=== PATIENT | male | born 1975 | race Caucasian/White ===

== ENCOUNTER 2017-03-06 19:28 | Emergency (ER) | payer OTHER ==
[2017-03-06 19:48] VITALS: RESP 18
[2017-03-06] MEDS ORDERED: ONDANSETRON 4 MG/2 ML VIAL IVP STA (19:57)
--- NOTE | 2017-03-06 20:01 | ED ---
General Adult HPI - General Chief complaint: Nausea/Vomiting/Diarrhea Stated complaint: NVD Time Seen by Provider: 03/06/17 19:38 Source: patient Mode of arrival: ambulatory Limitations: no limitations - History of Present Illness Initial comments: 41-year-old male onset of nausea vomiting for one day has had a sore throat, left earache. Also has multiple skin abscesses has had these in the past. He states history for sepsis 6 months ago. He has a mild headache no urinary symptoms mild cough. - Related Data Home Medications Medication Instructions Recorded Confirmed Acetaminophen-Codeine 300-30mg 1 tab PO Q4-6H PRN 03/06/17 03/06/17 [Tylenol #3] Ibuprofen [Motrin] 800 mg PO Q8H PRN 03/06/17 03/06/17 Penicillin V Potassium [Pen Vee K] 500 mg PO TID 03/06/17 03/06/17 Previous Rx's Medication Instructions Recorded Mupirocin 2% Oint [Bactroban 2% 1 applic TOPICAL BID #22 gm 03/06/17 Oint] Ondansetron [Zofran] 4 mg PO Q8HR PRN #6 tab 03/06/17 Sulfamethox-Tmp 800-160Mg [Bactrim 1 each PO Q12HR #20 tab 03/06/17 DS 800-160 mg] Allergies Allergy/AdvReac Type Severity Reaction Status Date / Time metoclopramide [From Reglan] Allergy Confusion Verified 03/06/17 20:11 pineapple Allergy Anaphylaxis Verified 03/06/17 20:11 tomato Allergy Anaphylaxis Verified 03/06/17 20:11 Review of Systems ROS Statement: Those systems with pertinent positive or pertinent negative responses have been documented in the HPI. ROS Other: All systems not noted in ROS Statement are negative. Constitutional: Denies: fever Eyes: Denies: eye pain ENT: Reports: ear pain, throat pain, dental pain Respiratory: Reports: cough Cardiovascular: Denies: chest pain, palpitations Endocrine: Reports: fatigue Gastrointestinal: Reports: nausea, vomiting. Denies: abdominal pain, diarrhea, constipation Genitourinary: Reports: urgency, dysuria Musculoskeletal: Reports: back pain Skin: Reports: rash, other (Small carbuncle on the neck under the arm and in the groin) Neurological: Denies: headache Psychiatric: Denies: anxiety, depression Hematological/Lymphatic: Denies: easy bleeding, easy bruising Past Medical History Past Medical History: Renal Disease, Seizure Disorder History of Any Multi-Drug Resistant Organisms: None Reported Past Surgical History: Appendectomy, Cholecystectomy Additional Past Surgical History / Comment(s): ledt shoulder Past Psychological History: No Psychological Hx Reported, Depression Smoking Status: Current every day smoker Past Alcohol Use History: None Reported Past Drug Use History: None Reported General Exam Limitations: no limitations Head exam: Present: atraumatic Eye exam: Present: PERRL, EOMI ENT exam: Present: mucous membranes moist, other (Throat red left tympanic membrane loss of light reflex) Neck exam: Present: normal inspection Respiratory exam: Present: normal lung sounds bilaterally Cardiovascular Exam: Present: regular rate, normal heart sounds GI/Abdominal exam: Present: soft, normal bowel sounds Neurological exam: Present: alert, CN II-XII intact Psychiatric exam: Present: normal affect, normal mood Skin exam: Present: warm, dry, other (Multiple areas that are carbuncles no fluctuant areas under the arms the posterior right neck and groin) Course Vital Signs 03/06/17 19:36 Temperature 97.3 F L Pulse Rate 105 H Respiratory 18 Rate Blood Pressure 172/98 O2 Sat by Pulse 95 Oximetry Medical Decision Making - Medical Decision Making Chest x-ray is normal, lab work is satisfactory. Have pharyngitis with left otitis media and carbuncles on the skinlikely related to MRSA we'll give one dose of Rocephin followed by Bactrim his strep screen was negative. - Lab Data Result diagrams: 03/06/17 20:20 03/06/17 20:20 Lab Results 03/06/17 03/06/17 03/06/17 Range/Units 20:20 20:20 20:20 WBC 11.8 H (3.8-10.6) k/uL RBC 4.94 (4.30-5.90) m/uL Hgb 15.9 (13.0-17.5) gm/dL Hct 44.7 (39.0-53.0) % MCV 90.5 (80.0-100.0) fL MCH 32.1 (25.0-35.0) pg MCHC 35.5 (31.0-37.0) g/dL RDW 12.5 (11.5-15.5) % Plt Count 339 (150-450) k/uL Neutrophils % 61 % Lymphocytes % 32 % Monocytes % 5 % Eosinophils % 1 % Basophils % 0 % Neutrophils # 7.1 (1.3-7.7) k/uL Lymphocytes # 3.8 (1.0-4.8) k/uL Monocytes # 0.6 (0-1.0) k/uL Eosinophils # 0.1 (0-0.7) k/uL Basophils # 0.0 (0-0.2) k/uL Sodium 138 (137-145) mmol/L Potassium 4.2 (3.5-5.1) mmol/L Chloride 105 (98-107) mmol/L Carbon Dioxide 21 L (22-30) mmol/L Anion Gap 12 mmol/L BUN 11 (9-20) mg/dL Creatinine 0.90 (0.66-1.25) mg/dL Est GFR (MDRD) Af Amer >60 (>60 ml/min/1.73 sqM) Est GFR (MDRD) Non-Af >60 (>60 ml/min/1.73 sqM) Glucose 182 H (74-99) mg/dL Plasma Lactic Acid Vic (0.7-2.0) mmol/L Calcium 9.4 (8.4-10.2) mg/dL Total Bilirubin 0.7 (0.2-1.3) mg/dL AST 31 (17-59) U/L ALT 40 (21-72) U/L Alkaline Phosphatase 74 (38-126) U/L Total Protein 8.0 (6.3-8.2) g/dL Albumin 4.3 (3.5-5.0) g/dL Group A Strep Rapid Negative (Negative) 03/06/17 Range/Units 20:20 WBC (3.8-10.6) k/uL RBC (4.30-5.90) m/uL Hgb (13.0-17.5) gm/dL Hct (39.0-53.0) % MCV (80.0-100.0) fL MCH (25.0-35.0) pg MCHC (31.0-37.0) g/dL RDW (11.5-15.5) % Plt Count (150-450) k/uL Neutrophils % % Lymphocytes % % Monocytes % % Eosinophils % % Basophils % % Neutrophils # (1.3-7.7) k/uL Lymphocytes # (1.0-4.8) k/uL Monocytes # (0-1.0) k/uL Eosinophils # (0-0.7) k/uL Basophils # (0-0.2) k/uL Sodium (137-145) mmol/L Potassium (3.5-5.1) mmol/L Chloride (98-107) mmol/L Carbon Dioxide (22-30) mmol/L Anion Gap mmol/L BUN (9-20) mg/dL Creatinine (0.66-1.25) mg/dL Est GFR (MDRD) Af Amer (>60 ml/min/1.73 sqM) Est GFR (MDRD) Non-Af (>60 ml/min/1.73 sqM) Glucose (74-99) mg/dL Plasma Lactic Acid Vic 1.4 (0.7-2.0) mmol/L Calcium (8.4-10.2) mg/dL Total Bilirubin (0.2-1.3) mg/dL AST (17-59) U/L ALT (21-72) U/L Alkaline Phosphatase (38-126) U/L Total Protein (6.3-8.2) g/dL Albumin (3.5-5.0) g/dL Group A Strep Rapid (Negative) - Radiology Data Radiology results: report reviewed Normal Disposition Clinical Impression: Pharyngitis, Otitis media, Carbuncles Disposition: HOME SELF-CARE Condition: Good Prescriptions: Mupirocin 2% Oint [Bactroban 2% Oint] 1 applic TOPICAL BID #22 gm Ondansetron [Zofran] 4 mg PO Q8HR PRN #6 tab PRN Reason: Nausea Sulfamethox-Tmp 800-160Mg [Bactrim DS 800-160 mg] 1 each PO Q12HR #20 tab Referrals: None,Stated [Primary Care Provider] - 1-2 days Time of Disposition: 21:40
[2017-03-06] MEDS ORDERED: SODIUM CHLORIDE 0.9% 1,000 ML IV STA (20:02)
[2017-03-06 20:42] LABS: Basophils % (A) 0 %; CH 32.2; CHCM 35.7; Eosinophils # (A) 0.1 k/uL (0-0.7); Eosinophils % (A) 1 %; HCT 44.7 % (39.0-53.0); HDW 2.73; HGB 15.9 gm/dL (13.0-17.5); Luc % (Auto) 2; Lymphocytes # (A) 3.8 k/uL (1.0-4.8); Lymphocytes % (A) 32 %; MCH 32.1 pg (25.0-35.0); MCHC 35.5 g/dL (31.0-37.0); MCV 90.5 fL (80.0-100.0); Mean Platelet Volume 6.6; Monocytes # (A) 0.6 k/uL (0-1.0); Monocytes % (A) 5 %; Neutrophils # (A) 7.1 k/uL (1.3-7.7); Neutrophils % (A) 61 %; RBC 4.94 m/uL (4.30-5.90); RDW 12.5 % (11.5-15.5); WBC 11.8 k/uL (3.8-10.6); WBC (Perox) 11.13
--- NOTE | 2017-03-06 20:49 | XR ---
EXAMINATION TYPE: XR chest 2V DATE OF EXAM: 03/06/2017 COMPARISON: 03/11/2013 HISTORY: Diarrhea TECHNIQUE: Frontal and lateral views of the chest are obtained. FINDINGS: Heart and mediastinum are normal. Lungs are clear of consolidation. There is coarsening of interstitial markings. There are no hilar masses. Bony thorax is intact. IMPRESSION: No heart failure or pulmonary consolidation.
[2017-03-06 20:51] LABS: ALT 40 U/L (21-72); AST 31 U/L (17-59); Alkaline Phosphatase 74 U/L (38-126); Anion Gap 12 mmol/L; Blood Urea Nitrogen 11 mg/dL (9-20); Calcium 9.4 mg/dL (8.4-10.2); Carbon Dioxide 21 mmol/L (22-30); Chloride 105 mmol/L (98-107); Glucose 182 mg/dL (74-99); Non-African American GFR(MDRD) >60 (>60 ml/min/1.73 sqM); Potassium 4.2 mmol/L (3.5-5.1); Sodium 138 mmol/L (137-145); Total Bilirubin 0.7 mg/dL (0.2-1.3)
[2017-03-06] MEDS ORDERED: KETOROLAC 30 MG/ML 1 ML VIAL IVP STA (21:05)
--- NOTE | 2017-03-06 21:18 | ED ---
Medical Decision Making - Lab Data Result diagrams: 03/06/17 20:20 03/06/17 20:20 Lab Results 03/06/17 03/06/17 03/06/17 Range/Units 20:20 20:20 20:20 WBC 11.8 H (3.8-10.6) k/uL RBC 4.94 (4.30-5.90) m/uL Hgb 15.9 (13.0-17.5) gm/dL Hct 44.7 (39.0-53.0) % MCV 90.5 (80.0-100.0) fL MCH 32.1 (25.0-35.0) pg MCHC 35.5 (31.0-37.0) g/dL RDW 12.5 (11.5-15.5) % Plt Count 339 (150-450) k/uL Neutrophils % 61 % Lymphocytes % 32 % Monocytes % 5 % Eosinophils % 1 % Basophils % 0 % Neutrophils # 7.1 (1.3-7.7) k/uL Lymphocytes # 3.8 (1.0-4.8) k/uL Monocytes # 0.6 (0-1.0) k/uL Eosinophils # 0.1 (0-0.7) k/uL Basophils # 0.0 (0-0.2) k/uL Sodium 138 (137-145) mmol/L Potassium 4.2 (3.5-5.1) mmol/L Chloride 105 (98-107) mmol/L Carbon Dioxide 21 L (22-30) mmol/L Anion Gap 12 mmol/L BUN 11 (9-20) mg/dL Creatinine 0.90 (0.66-1.25) mg/dL Est GFR (MDRD) Af Amer >60 (>60 ml/min/1.73 sqM) Est GFR (MDRD) Non-Af >60 (>60 ml/min/1.73 sqM) Glucose 182 H (74-99) mg/dL Plasma Lactic Acid Vic (0.7-2.0) mmol/L Calcium 9.4 (8.4-10.2) mg/dL Total Bilirubin 0.7 (0.2-1.3) mg/dL AST 31 (17-59) U/L ALT 40 (21-72) U/L Alkaline Phosphatase 74 (38-126) U/L Total Protein 8.0 (6.3-8.2) g/dL Albumin 4.3 (3.5-5.0) g/dL Group A Strep Rapid Negative (Negative) 03/06/17 Range/Units 20:20 WBC (3.8-10.6) k/uL RBC (4.30-5.90) m/uL Hgb (13.0-17.5) gm/dL Hct (39.0-53.0) % MCV (80.0-100.0) fL MCH (25.0-35.0) pg MCHC (31.0-37.0) g/dL RDW (11.5-15.5) % Plt Count (150-450) k/uL Neutrophils % % Lymphocytes % % Monocytes % % Eosinophils % % Basophils % % Neutrophils # (1.3-7.7) k/uL Lymphocytes # (1.0-4.8) k/uL Monocytes # (0-1.0) k/uL Eosinophils # (0-0.7) k/uL Basophils # (0-0.2) k/uL Sodium (137-145) mmol/L Potassium (3.5-5.1) mmol/L Chloride (98-107) mmol/L Carbon Dioxide (22-30) mmol/L Anion Gap mmol/L BUN (9-20) mg/dL Creatinine (0.66-1.25) mg/dL Est GFR (MDRD) Af Amer (>60 ml/min/1.73 sqM) Est GFR (MDRD) Non-Af (>60 ml/min/1.73 sqM) Glucose (74-99) mg/dL Plasma Lactic Acid Vic 1.4 (0.7-2.0) mmol/L Calcium (8.4-10.2) mg/dL Total Bilirubin (0.2-1.3) mg/dL AST (17-59) U/L ALT (21-72) U/L Alkaline Phosphatase (38-126) U/L Total Protein (6.3-8.2) g/dL Albumin (3.5-5.0) g/dL Group A Strep Rapid (Negative) Disposition Clinical Impression: Pharyngitis, Otitis media, Carbuncles Disposition: HOME SELF-CARE Condition: Good Instructions: Acute Nausea and Vomiting (ED), Otitis Media (ED) Prescriptions: Mupirocin 2% Oint [Bactroban 2% Oint] 1 applic TOPICAL BID #22 gm Ondansetron [Zofran] 4 mg PO Q8HR PRN #6 tab PRN Reason: Nausea Sulfamethox-Tmp 800-160Mg [Bactrim DS 800-160 mg] 1 each PO Q12HR #20 tab Referrals: None,Stated [Primary Care Provider] - 1-2 days
[2017-03-06 21:30] VITALS: BP 156/94; PULSE 98; TEMP 97.9
== END 2017-03-06 22:03 | disposition home or self-care (01) ==
LOC: EC 19:28
DX: L02.13 Carbuncle of neck (principal); L02.234 Carbuncle of groin; L02.434 Carbuncle of left upper limb; L02.433 Carbuncle of right upper limb; H66.92 Otitis media, unspecified, left ear; J02.9 Acute pharyngitis, unspecified; R11.2 Nausea with vomiting, unspecified; R19.7 Diarrhea, unspecified; F17.200 Nicotine dependence, unspecified, uncomplicated; Z91.018 Allergy to other foods; Z88.8 Allergy status to other drugs, medicaments and biological substances
CPT/HCPCS: 36415; 80053; 83605; 85025; 87081; 87430; 71020; 99284; 96365; 96375 ×2; 96361; J2405; J0696; J1885

== ENCOUNTER 2017-05-06 01:00 | Observation (INO) | payer OTHER ==
[2017-05-06] MEDS ORDERED: NITROGLYCERIN SL TABS 0.4 MG TAB SUBLINGUAL STA (01:23)
[2017-05-06] MEDS ORDERED: ASPIRIN 81 MG PO STA (01:23)
[2017-05-06] MEDS ORDERED: SODIUM CHLORIDE 0.9% 1,000 ML IV STA (01:23)
--- NOTE | 2017-05-06 01:34 | ED ---
Chest Pain HPI - General Chief Complaint: Chest Pain Stated Complaint: Chest Pains Time Seen by Provider: 05/06/17 01:06 Source: patient Mode of arrival: wheelchair Limitations: no limitations - History of Present Illness Initial Comments: This patient is a 41-year-old man who presents with complaint of chest pain. He states the pain is in the left upper chest. The pain is a sharp stabbing sensation. He currently rates it severe and states that it is constant. He has not found anything that improves it or makes it worse. He states that when the pain came on he also started having some sweating. Over the course of the last 20 minutes or so he has noted that tingling feeling to his left arm. MD Complaint: chest pain Onset/Timin -: minutes(s) Onset: during rest Pain Location: left chest Pain Radiation: none Severity: severe Quality: sharp Consistency: constant Improves With: nothing Worsens With: nothing Anginal Symptoms: diaphoresis - Related Data Home Medications Medication Instructions Recorded Confirmed Albuterol Inhaler [Ventolin Hfa 1 - 2 puff INHALATION Q6HR PRN 05/06/17 05/06/17 Inhaler] Carvedilol 25 mg PO 05/06/17 HYDROcodone/APAP 5-325MG [[place] 1 tab PO BID 05/06/17 05/06/17 5-325] INSULIN LISPRO (HumaLOG) [HumaLOG] 0 units SQ ACHS 05/06/17 05/06/17 Insulin Glargine [Lantus] 20 unit SQ HS 05/06/17 05/06/17 Lisinopril [Prinivil] 10 mg PO DAILY 05/06/17 05/06/17 Pantoprazole [Protonix] 40 mg PO DAILY 05/06/17 05/06/17 Sucralfate [Carafate] 1 gm PO QID 05/06/17 05/06/17 carBAMazepine [TEGretol XR] 400 mg PO Q12HR 05/06/17 05/06/17 levETIRAcetam 1,000 mg PO Q12HR 05/06/17 05/06/17 Allergies Allergy/AdvReac Type Severity Reaction Status Date / Time metoclopramide [From Reglan] Allergy Confusion Verified 03/06/17 20:11 pineapple Allergy Anaphylaxis Verified 03/06/17 20:11 tomato Allergy Anaphylaxis Verified 03/06/17 20:11 Review of Systems ROS Statement: Those systems with pertinent positive or pertinent negative responses have been documented in the HPI. ROS Other: All systems not noted in ROS Statement are negative. Constitutional: Denies: fever, chills Respiratory: Denies: cough, dyspnea, wheezes Cardiovascular: Reports: chest pain. Denies: palpitations, orthopnea, edema, syncope Gastrointestinal: Denies: abdominal pain, nausea, vomiting Genitourinary: Denies: dysuria Musculoskeletal: Denies: back pain Skin: Denies: rash Neurological: Reports: numbness (Left arm). Denies: headache, weakness EKG Findings - EKG Results: EKG: interpreted by ERMD, sinus rhythm, normal axis, normal QRS, normal ST/T EKG shows: tachycardia (Rate approximately 112 bpm) Past Medical History Past Medical History: Coronary Artery Disease (CAD), Diabetes Mellitus, Renal Disease, Seizure Disorder History of Any Multi-Drug Resistant Organisms: None Reported Past Surgical History: Appendectomy, Cholecystectomy Additional Past Surgical History / Comment(s): ledt shoulder Past Psychological History: No Psychological Hx Reported, Depression Smoking Status: Current every day smoker Past Alcohol Use History: None Reported Past Drug Use History: None Reported - Past Family History Father Family Medical History: Cancer, Chest Pain / Angina, Diabetes Mellitus Mother Family Medical History: Chest Pain / Angina, Coronary Artery Disease (CAD), Diabetes Mellitus General Exam Limitations: no limitations General appearance: alert, obese Head exam: Present: atraumatic, normocephalic Eye exam: Present: normal appearance. Absent: scleral icterus, conjunctival injection ENT exam: Present: normal oropharynx Respiratory exam: Present: normal lung sounds bilaterally. Absent: respiratory distress, wheezes, rales, rhonchi, stridor, chest wall tenderness Cardiovascular Exam: Present: normal rhythm, tachycardia (Rate approximately 108 ), normal heart sounds. Absent: systolic murmur, diastolic murmur, rubs, gallop GI/Abdominal exam: Present: soft. Absent: distended, tenderness, guarding, rebound, mass, pulsatile mass, hernia Extremities exam: Present: normal capillary refill, pedal edema (Patient has trace edema at the ankles bilaterally). Absent: calf tenderness Back exam: Present: normal inspection. Absent: CVA tenderness (R), CVA tenderness (L) Neurological exam: Present: alert Skin exam: Present: warm, intact, normal color, diaphoretic. Absent: rash Course Vital Signs 05/06/17 05/06/17 05/06/17 01:04 02:19 03:58 Temperature 97.5 F L Pulse Rate 112 H 97 93 Pulse Rate [ Pulse Oximetery ] Respiratory 24 18 18 Rate Blood Pressure 164/89 132/68 129/73 Blood Pressure [Left Arm] O2 Sat by Pulse 95 98 99 Oximetry 05/06/17 05/06/17 05/06/17 05:15 05:32 05:43 Temperature 97.9 F 97.9 F 97.7 F Pulse Rate 88 88 Pulse Rate [ 89 Pulse Oximetery ] Respiratory 18 18 18 Rate Blood Pressure 140/72 140/72 Blood Pressure 130/99 [Left Arm] O2 Sat by Pulse 96 96 96 Oximetry Chest Pain MDM - MDM This patient is a 41-year-old man presenting with chest pain and diaphoresis. His initial workup is negative. Case discussed with Dr. Ferrell, who is covering for Dr. Reinoso, and will admit to have telemetry monitoring, serial cardiac enzymes and cardiology consultation. Disposition Clinical Impression: Chest pain Disposition: ADMITTED IP TO THIS HOSP Condition: Fair Referrals: Ellis Reinoso MD [Primary Care Provider] - 1-2 days
[2017-05-06 01:36] LABS: Basophils # (A) 0.1 k/uL (0-0.2); Basophils % (A) 1 %; CH 32.5; Eosinophils # (A) 0.2 k/uL (0-0.7); Eosinophils % (A) 1 %; HCT 48.3 % (39.0-53.0); HDW 2.62; HGB 16.2 gm/dL (13.0-17.5); Luc # (Auto) 0.25; Luc % (Auto) 2; Lymphocytes % (A) 36 %; MCH 31.2 pg (25.0-35.0); MCHC 33.5 g/dL (31.0-37.0); MCV 93.3 fL (80.0-100.0); Mean Platelet Volume 7.6; Monocytes # (A) 0.7 k/uL (0-1.0); Monocytes % (A) 5 %; Neutrophils # (A) 7.7 k/uL (1.3-7.7); Neutrophils % (A) 55 %; RBC 5.18 m/uL (4.30-5.90); RDW 13.4 % (11.5-15.5); WBC (Perox) 13.58
[2017-05-06 01:45] LABS: ALT 78 U/L (21-72); AST 44 U/L (17-59); Alkaline Phosphatase 96 U/L (38-126); Amylase <30 U/L (30-110); Anion Gap 13 mmol/L; Blood Urea Nitrogen 13 mg/dL (9-20); Calcium 10.1 mg/dL (8.4-10.2); Carbon Dioxide 21 mmol/L (22-30); Chloride 105 mmol/L (98-107); Glucose 210 mg/dL (74-99); Magnesium 1.9 mg/dL (1.6-2.3); Non-African American GFR(MDRD) >60 (>60 ml/min/1.73 sqM); Potassium 4.3 mmol/L (3.5-5.1); Sodium 139 mmol/L (137-145); Total Bilirubin 0.5 mg/dL (0.2-1.3); Total Protein 8.3 g/dL (6.3-8.2)
--- NOTE | 2017-05-06 01:52 | XR ---
EXAM: XR Chest, 2 Views CLINICAL HISTORY: Chest Pain TECHNIQUE: Frontal and lateral views of the chest. COMPARISON: 03/06/2017 FINDINGS: Lungs: Unremarkable. No consolidation. Pleural space: Unremarkable. No pneumothorax. Heart: Unremarkable. No cardiomegaly. Mediastinum: Unremarkable. Bones/joints: Unremarkable. IMPRESSION: No acute findings or substantial change
[2017-05-06 02:09] LABS: Appearance,Urine Clear (Clear); Bilirubin,Urine Negative (Negative); Glucose,Urine (UA) 4+ (Negative); Ketones,Urine Negative (Negative); Leukocyte Esterase,Urine Negative (Negative); Nitrite,Urine Negative (Negative); PH, Urine 6.5 (5.0-8.0); Protein,Urine Trace (Negative); Specific Gravity,Urine 1.021 (1.001-1.035); UA Billing (MACRO vs. MICRO) CHEM; Urobilinogen,Urine <2.0 mg/dL (<2.0)
[2017-05-06 02:23] VITALS: RESP 18
[2017-05-06] MEDS ORDERED: MORPHINE SULFATE 4 MG/ML SYRINGE IV STA (04:05)
[2017-05-06] MEDS ORDERED: ENOXAPARIN 150 MG/ML SYRINGE SQ STA (04:05)
[2017-05-06 04:29] LABS: Partial Thromboplastin Time 23.4 sec (22.0-30.0)
[2017-05-06] MEDS ORDERED: NITROGLYCERIN SL TABS 0.4 MG TAB SUBLINGUAL PRN (04:56)
[2017-05-06 06:29] VITALS: BMI 50.2
[2017-05-06 06:59] LABS: Glucose,Whole Blood 135 mg/dL (75-99)
[2017-05-06] MEDS ORDERED: HEPARIN SODIUM,PORCINE 5,000 UNIT/ML 1 ML VIAL SQ SCH (08:00)
[2017-05-06 08:04] LABS: Creatine Kinase 145 U/L (55-170)
[2017-05-06 08:17] LABS: Creatine Kinase MB 0.9 ng/mL (0.0-2.4); Troponin I <0.012 ng/mL (0.000-0.034)
[2017-05-06 08:36] VITALS: BP 175/89; PULSE 83; TEMP 97.5
--- NOTE | 2017-05-06 12:36 | CONS ---
This is a 41-year-old gentleman who is quite obese, has a sleep apnea syndrome. Smokes 2 packs a day and has moved here from [place] sometime in the last year or so. He came into the hospital with complaints of pain, which he describes as a sharp stabbing pain that lasted a few seconds. It comes and goes then he felt that it was constant. After he arrived the pain seemed to have gotten better. His 2 troponins are normal. EKG is unremarkable. He also complained of some nondescript tingling in the left hand fingers which have resolved. He also carries a diagnosis of seizure disorder, type 2 diabetes on insulin and hypertensive cardiovascular disease. At the time of my evaluation, he is resting comfortably without symptoms. PAST MEDICAL HISTORY: 1. Obesity. 2. Obstructive sleep apnea syndrome, wears a CPAP. 3. Type 2 diabetes. 4. Hypertension. 5. History of an abnormal stress test, had a cardiac cath apparently attempted from right radial that was unsuccessful and also right femoral unsuccessful. This was in September and then he was advised medical therapy. This was performed in [place]. Details unavailable. I will try and secure the report. The patient is status post appendectomy and cholecystectomy and left shoulder surgery. SOCIAL HISTORY: Smokes 2 packs a day. Does not use alcohol on a regular basis. CORONARY RISK FACTORS: These include hypertension, obesity, hyperlipidemia, smoking, type 2 diabetes mellitus and does have family history of premature CAD. Medications at home include: Albuterol inhaler, carvedilol, Humalog and Lantus insulin, lisinopril, Protonix, carbamazepine and Keppra. ALLERGIES: He is allergic to REGLAN. On examination, blood pressure 130/80, pulse rate 70 per minute regular. HEENT: Unremarkable. Fundus was not examined by me. Neck is supple. There is no JVD. I do not hear a carotid bruit. Heart exam reveals S1 and S2 with somewhat distant heart sounds. Lungs are clear. Abdomen is distended, nontender. Lower extremities reveal diminished right dorsalis pedis, palpable left dorsalis pedis pulses. EKG revealed sinus mechanism, sinus tach, no acute changes. Laboratory data revealed that 2 sets of troponins are normal. His D-dimer is also within normal limits. IMPRESSION: 1. Chest pain syndrome, seems very atypical. Apparently, there was a question of abnormal stress test and unsuccessful cardiac cath because of spasm from right radial and also right femoral. This is patient information unverified details. 2. Obesity. 3. Type 2 diabetes mellitus. 4. Smoking. 5. Hypertension. RECOMMENDATIONS: I am recommending that I will first obtain the records of his stress test and cardiac cath procedure note from [place]. Based on this, I will make further recommendations. I will not perform an intervention until I get the report. Patient's pain is atypical. Troponins are normal. Will increase activity. I advised the patient to work with smoking cessation and weight reduction efforts. I will secure the information from [place] and then come back and speak to the patient. Thank you very much for the consult. ZIGGY
[2017-05-07] MEDS ORDERED: ASPIRIN 325 MG TAB PO SCH (09:00)
--- NOTE | 2017-05-20 08:35 | HP ---
HISTORY AND PHYSICAL DATE OF ADMISSION: 05/06/2017 CHIEF COMPLAINT: Chest pain. HISTORY OF PRESENT ILLNESS: This is the first known admission for this 41-year-old, obese white male, who smokes heavily. He came into the emergency room with chest pain, cardiac exams are normal. He was admitted for observation. REVIEW OF SYSTEMS: He has had no hemoptysis, chest pain, fever, heart disease, etc. He does have SYLVIA, type 2 diabetes, and hypertension with a history of abnormal stress test. He smokes heavily. PHYSICAL EXAMINATION: Blood pressure is 130/80, pulse 70, respirations 35 and he is afebrile. In general, he appears to be obese, in no apparent distress. Skin color is normal. Skin is warm and dry and lymph nodes are not enlarged. Head, ears, eyes, nose, mouth and throat were normal. Neck veins are not distended. Chest was clear to auscultation and the cardiac exam is normal sinus rhythm. Abdomen is soft and protuberant and extremities were normal. IMPRESSION: 1. Chest pain with normal cardiac enzymes. 2. Obesity. 3. Chronic obstructive pulmonary disease. 4. Diabetes. 5. Obstructive sleep apnea. 6. Hypertension. PLAN: 1. Bed rest. 2. IV fluids. 3. Serial EKGs and enzymes. 4. Consult with Cardiology. MMODL / IJN: [id number] /
== END 2017-05-06 09:02 | disposition left against medical advice (07) ==
LOC: EC 01:00 → 3OBS 04:56
PROVIDERS: ADMIT Family Medicine; ATTEND Family Medicine
DX: R07.89 Other chest pain (principal); R61 Generalized hyperhidrosis; R20.2 Paresthesia of skin; I11.9 Hypertensive heart disease without heart failure; I25.10 Atherosclerotic heart disease of native coronary artery without angina pectoris; G47.33 Obstructive sleep apnea (adult) (pediatric); Z99.89 Dependence on other enabling machines and devices; G40.909 Epilepsy, unspecified, not intractable, without status epilepticus; E11.9 Type 2 diabetes mellitus without complications; J44.9 Chronic obstructive pulmonary disease, unspecified; E78.5 Hyperlipidemia, unspecified; F17.200 Nicotine dependence, unspecified, uncomplicated; E66.9 Obesity, unspecified; Z68.43 Body mass index [BMI] 50.0-59.9, adult; Z79.4 Long term (current) use of insulin; Z79.891 Long term (current) use of opiate analgesic; Z79.899 Other long term (current) drug therapy; Z88.8 Allergy status to other drugs, medicaments and biological substances; Z91.018 Allergy to other foods; Z82.49 Family history of ischemic heart disease and other diseases of the circulatory system
CPT/HCPCS: 99285 ×2; 96374 ×2; 96372 ×2; 36415; 93005; 85379; 80053; 82150; 82550; 82553; 83690; 83735; 84484; 85025; 85610; 85730; 81003; 71020; G0378; J2270; J1650

== ENCOUNTER 2017-05-19 12:49 | Emergency (ER) | payer OTHER ==
[2017-05-19 12:55] VITALS: BP 180/99; PULSE 90; RESP 18; TEMP 97.9
[2017-05-19] MEDS ORDERED: IBUPROFEN 600 MG TAB PO STA (13:03)
--- NOTE | 2017-05-19 13:14 | ED ---
Lower Extremity Injury HPI - General Chief Complaint: Extremity Injury, Lower Stated Complaint: Leg Injury Time Seen by Provider: 05/19/17 12:57 Source: patient Mode of arrival: wheelchair Limitations: no limitations - History of Present Illness Initial Comments: 41-year-old male patient presents to emergency department today for evaluation of left ankle pain. Patient states that around noon he was walking through a parking lot when he stepped into a hole twisting his left ankle. Patient states that he is having a lot of pain on the lateral side of the ankle. Patient states that it hurts to walk. He states that the area is swollen. Patient denies falling, hitting his head, losing consciousness. Denies any numbness or tingling to the foot. Patient denies taking any pain medication for this. Patient states he has had previous injuries to the ankle states it has been broken 12 times. Patient denies any headache, neck pain, back pain, chest pain, shortness of breath, dizziness, weakness, abdominal pain, nausea, vomiting, or difficulties with bowel movements or urination. - Related Data Home Medications Medication Instructions Recorded Confirmed Albuterol Inhaler [Ventolin Hfa 1 - 2 puff INHALATION Q6HR PRN 05/06/17 05/06/17 Inhaler] Carvedilol 25 mg PO BID 05/06/17 05/06/17 HYDROcodone/APAP 5-325MG [[place] 1 tab PO BID 05/06/17 05/06/17 5-325] INSULIN LISPRO (HumaLOG) [HumaLOG] See Protocol SQ ACHS 05/06/17 05/06/17 Insulin Glargine [Lantus] 20 unit SQ HS 05/06/17 05/06/17 Lisinopril [Prinivil] 10 mg PO DAILY 05/06/17 05/06/17 Pantoprazole [Protonix] 40 mg PO DAILY 05/06/17 05/06/17 Sucralfate [Carafate] 1 gm PO QID 05/06/17 05/06/17 carBAMazepine [TEGretol XR] 400 mg PO Q12HR 05/06/17 05/06/17 levETIRAcetam 1,000 mg PO Q12HR 05/06/17 05/06/17 Allergies Allergy/AdvReac Type Severity Reaction Status Date / Time pineapple Allergy Anaphylaxis Verified 05/19/17 13:16 tomato Allergy Anaphylaxis Verified 05/19/17 13:16 metoclopramide [From Reglan] AdvReac Confusion Verified 05/19/17 13:16 Review of Systems ROS Statement: Those systems with pertinent positive or pertinent negative responses have been documented in the HPI. ROS Other: All systems not noted in ROS Statement are negative. 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 History of Any Multi-Drug Resistant Organisms: None Reported Past Surgical History: Appendectomy, Cholecystectomy Additional Past Surgical History / Comment(s): ledt shoulder Past Anesthesia/Blood Transfusion Reactions: No Reported Reaction Past Psychological History: No Psychological Hx Reported, Depression Smoking Status: Current every day smoker Past Alcohol Use History: None Reported Past Drug Use History: None Reported - Past Family History Father Family Medical History: Cancer, Chest Pain / Angina, Diabetes Mellitus Mother Family Medical History: Chest Pain / Angina, Coronary Artery Disease (CAD), Diabetes Mellitus General Exam Limitations: no limitations General appearance: alert, in no apparent distress Respiratory exam: Present: normal lung sounds bilaterally. Absent: respiratory distress, wheezes, rales, rhonchi, stridor Cardiovascular Exam: Present: regular rate, normal rhythm, normal heart sounds. Absent: systolic murmur, diastolic murmur, rubs, gallop, clicks Extremities exam: Present: full ROM, tenderness (Over the left lateral malleolus and surrounding.), normal capillary refill, other (Mild swelling noted around the left lateral malleolus. Skin is pink, warm, and dry to left ankle. Cap refill less than 3 seconds. Pedal and posttibial pulses are strong and equal bilaterally. No fibular head tenderness.). Absent: normal inspection , pedal edema, joint swelling, calf tenderness Neurological exam: Present: alert, oriented X3, CN II-XII intact Psychiatric exam: Present: normal affect, normal mood Skin exam: Present: warm, dry, intact, normal color. Absent: rash Course Vital Signs 05/19/17 12:54 Temperature 97.9 F Pulse Rate 90 Respiratory 18 Rate Blood Pressure 180/99 O2 Sat by Pulse 98 Oximetry Medical Decision Making - Medical Decision Making 41-year-old male patient presented to emergency department today for evaluation of left ankle pain after an injury. X-ray showed no acute osseous abnormalities. Patient was diagnosed with ankle sprain. Given an Len wrap. Instructions to rest, ice, elevate the extremity. Did instruct the patient to obtain a repeat x-ray in 7-10 days for any continued pain symptoms. Instructed to follow-up with his primary care physician for recheck in 1-2 days. Instructed to return here for any new, worsening, or concerning symptoms. Patient verbalizes understanding and agrees with this plan. - Radiology Data Radiology results: report reviewed, image reviewed 3 views of the ankle demonstrate ankle mortise to be intact and symmetric. Did joint spaces are preserved. The osseous structures are intact. Diffuse soft tissue edema. Well-corticated densities adjacent to the lateral malleolus. Tiny spur at the Achilles insertion calcaneus. Impression by Dr. Martin shows no definite acute fracture or dislocation, if symptoms persist follow-up study in 7-10 days to be suggested. Disposition Clinical Impression: Left ankle sprain Disposition: HOME SELF-CARE Condition: Good Instructions: Ankle Sprain (ED) Additional Instructions: Rest, ice, and elevated the extremity. Ice 20 minutes at a time at least 4 times daily. Take ibuprofen or Tylenol for pain control. Follow up with your primary care physician for recheck in 1-2 days. If pain symptoms persist beyond 7-10 days have repeat x-ray performed. Return immediately for any new, worsening, or concerning symptoms. Referrals: Ellis Reinoso MD [Primary Care Provider] - 1-2 days Time of Disposition: 13:27
--- NOTE | 2017-05-19 13:21 | XR ---
EXAMINATION TYPE: XR ankle complete LT DATE OF EXAM: 05/19/2017 COMPARISON: NONE HISTORY: Pain FINDINGS: Three views of the ankle demonstrate the ankle mortise to be intact and symmetric. The joint spaces are preserved. The osseous structures are intact. Diffuse soft tissue edema. Well-corticated densit ies adjacent to the lateral malleolus. Tiny spur at the Achilles insertion calcaneus. IMPRESSION: 1. No definite acute fracture or dislocation, if symptoms persist follow-up study in 7 to 10 days wou ld be suggested.
== END 2017-05-19 13:35 | disposition home or self-care (01) ==
LOC: EC 12:49
DX: S93.402A Sprain of unspecified ligament of left ankle, initial encounter (principal); I25.10 Atherosclerotic heart disease of native coronary artery without angina pectoris; E11.9 Type 2 diabetes mellitus without complications; G40.909 Epilepsy, unspecified, not intractable, without status epilepticus; F17.200 Nicotine dependence, unspecified, uncomplicated; Z79.4 Long term (current) use of insulin; Z79.891 Long term (current) use of opiate analgesic; Z79.899 Other long term (current) drug therapy; Z88.8 Allergy status to other drugs, medicaments and biological substances; Z91.018 Allergy to other foods; X50.1XXA Overexertion from prolonged static or awkward postures, initial encounter
CPT/HCPCS: 99283

== ENCOUNTER → 2017-06-02 | Outpatient (CLI) | payer OTHER | END | disposition home or self-care (01) | LOC: RADMRIMAIN 18:08 | PROVIDERS: ATTEND Family Medicine | DX: Z53.9 Procedure and treatment not carried out, unspecified reason (principal) ==

== ENCOUNTER → 2017-06-08 | Outpatient (CLI) | payer OTHER ==
--- NOTE | 2017-06-08 17:36 | CONS ---
CONSULTATION REASON FOR CONSULTATION: Sleep apnea. This is a 41-year-old male patient, morbidly obese, with an established diagnosis of obstructive sleep apnea. The patient's diagnosis was established through a [facility] sleep center in [place] in 2007. Back then the patient underwent a split-night study and he was found to have severe SYLVIA with an AHI of 77.1, and he was titrated to a CPAP pressure of 11 cm of water. Note that at that time he weighed 294 pounds. Over the past 9 years the patient has been using a CPAP machine which got broken approximately 6 months ago, and he has been feeling very sleepy and tired. He has been utilizing a machine that he took from his [id number]. For all these reasons, he was referred to me for further advice. He is very interested in having another study to proceed with CPAP therapy again. At this point in time, the patient is very symptomatic. He is snoring, he quits breathing on multiple occasions throughout the night, and he wakes up very tired and non-refreshed. His Tendoy score is 17. He goes to bed around midnight and he sleeps around 6 or 7 hours. He has very fragmented sleep. He wakes up constantly throughout the night. He has gained a significant amount of weight. He has gained probably 60 pounds over the past years since he had his study back in 2007. No sleepwalking. No sleeptalking. No parasomnias. No grinding of the teeth. No significant restlessness in the lower extremities. No nocturnal seizures. The patient is known to have seizure disorder, which seems to be controlled with medication at this point. PAST MEDICAL HISTORY: 1. Severe obstructive sleep apnea; details as discussed above. 2. Pulmonary fibrosis. 3. Obesity. 4. Seizure disorder. 5. Hypertension. 6. COPD/asthma. 7. Diabetes mellitus. 8. Coronary artery disease. 9. Chronic back pain. PAST SURGICAL HISTORY: Past surgical history includes: 1. Cardiac catheterization. 2. Left shoulder surgery. 3. Appendectomy. 4. Cholecystectomy. DRUG ALLERGIES: 1. REGLAN. 2. PINEAPPLE. OUTPATIENT MEDICATION LIST: Outpatient medication list includes: 1. Ventolin HFA on a p.r.n. basis. 2. Tegretol 400 mg p.o. twice a day. 3. Coreg 25 mg p.o. twice a day. 4. Lisinopril 10 mg p.o. daily. 5. Humalog insulin along with Lantus insulin. Exact dose is not known. 6. Protonix 40 mg p.o. daily. 7. Basaglar injections. 8. Carafate 1 gram 3-4 times a day. 9. Elsie 5/325 on a p.r.n. basis every 6-8 hours. 10.Keppra 1000 mg twice a day. FAMILY HISTORY: Positive for sleep apnea, diabetes in his mother and father. Various forms of malignancy also run in the family. REVIEW OF SYSTEMS: Twelve-point review of systems was done. CONSTITUTIONAL: Obesity with ongoing weight gain on the order of 60 pounds at least over the past 7-8 years. No fever, chills or night sweats. HEENT: Loud snoring. No runny, itchy eyes or nose or postnasal drainage. CARDIAC: No angina or palpitations. PULMONARY: He has chronic exertional dyspnea and has a chronic cough. He is a chronic smoker; smokes around 2 packs of cigarettes a day. No pleurisy or hemoptysis. GI: Negative for nausea, vomiting, abdominal pain or GI bleed. is negative for dysuria, frequency, urgency. MUSCULOSKELETAL: Chronic back pain. Skin is negative for any ulcers, wounds or cellulitis. NEURO: History of seizure activity, currently well controlled with medication. Psych is negative for anxiety or depression. RHEUMATOLOGIC: Chronic back pain. HEMATOLOGIC: The patient has diabetes mellitus. PHYSICAL EXAMINATION: BP is 131/78, pulse 91, respirations 14, temperature 98.3, saturation 97% on room air. Neck size is 18-1/2 inches. BMI that is 49.3. Tendoy score is 17. GENERAL APPEARANCE: Obese, calm, comfortable. Not in acute distress. HEENT: Poor dentition. Mallampati class 4. No goiter or neck masses. He has a short thick neck. LUNGS: Diminished breath sounds in the lung base bilaterally. HEART: Sounds are regular rate and rhythm. Normal S1, S2. No S3. No S4. No murmurs. ABDOMEN: Obese, soft, nontender. No organomegaly. No direct tenderness. No rebound tenderness or guarding. EXTREMITIES: Trace edema. No cyanosis or clubbing at this point. IMPRESSION: 1. Severe symptomatic obstructive sleep apnea with an AHI of 77.1, based on a sleep study that was done back in 2007. The patient is currently off treatment and he is seeking reevaluation regarding his SYLVIA and treatment. 2. Excessive hypersomnia with an Tendoy score of 17 secondary to above. 3. Obesity with a BMI of 49.3 with significant interval weight gain of 60 pounds over the past 7-8 years. 4. Seizure disorder. 5. Pulmonary fibrosis. 6. Hypertension. 7. Diabetes mellitus. 8. Coronary artery disease. 9. Chronic back pain. 10.Smoker. PLAN: 1. Encourage weight loss. 2. Sleep in a sidewise body position. 3. Keep the head of the bed elevated. 4. Implement good sleep hygiene measures. 5. Proceed with a split-night study to reestablish diagnosis and proceed with treatment accordingly. Will adjust the patient's CPAP pressure also and will provide him the appropriate mask interface. We will continue to make adjustments based on his clinical response. 00Wisreedhar follow. MMCAPO / IJN: [id number] /
== END | disposition home or self-care (01) ==
LOC: SLEEP 15:06
PROVIDERS: ATTEND Internal Medicine Critical Care Medicine
DX: G47.33 Obstructive sleep apnea (adult) (pediatric) (principal); G47.10 Hypersomnia, unspecified; E66.9 Obesity, unspecified; G40.909 Epilepsy, unspecified, not intractable, without status epilepticus; J84.10 Pulmonary fibrosis, unspecified; I10 Essential (primary) hypertension; E11.9 Type 2 diabetes mellitus without complications; I25.10 Atherosclerotic heart disease of native coronary artery without angina pectoris; M54.9 Dorsalgia, unspecified; G89.29 Other chronic pain; F17.200 Nicotine dependence, unspecified, uncomplicated; Z68.42 Body mass index [BMI] 45.0-49.9, adult
CPT/HCPCS: 99211

== ENCOUNTER 2017-08-16 18:08 | Emergency (ER) | payer OTHER ==
[2017-08-16 18:57] VITALS: RESP 20
--- NOTE | 2017-08-16 20:38 | ED ---
General Adult HPI - General Chief complaint: Abdominal Pain Stated complaint: constipation Time Seen by Provider: 08/16/17 20:26 Source: patient, RN notes reviewed Mode of arrival: ambulatory Limitations: no limitations - History of Present Illness Initial comments: 41-year-old male presents to the emergency Department chief complaint of constipation. He states that for the last week or so he's only been having very small bowel movement and he's having a lot of rectal pressure. Patient states wraps around to the front as well. He was seen at [facility] which they told me had some constipation. He states it is gotten worse. He states even after he urinates he is having just some leftover dribbling. He was concerned due to the fact that he is just still in the same situation still has not had a good bowel movement so he thought that he should be seen. Patient denies any recent fever, chills, shortness of breath, chest pain, back pain, nausea vomiting, numbness or tingling, dysuria or hematuria, diarrhea, headaches or visual changes, or any other current symptoms. - Related Data Home Medications Medication Instructions Recorded Confirmed Albuterol Inhaler [Ventolin Hfa 2 puff INHALATION RT-QID PRN 05/06/17 08/16/17 Inhaler] Carvedilol 25 mg PO BID 05/06/17 08/16/17 HYDROcodone/APAP 5-325MG [[place] 1 tab PO BID PRN 05/06/17 08/16/17 5-325] INSULIN LISPRO (HumaLOG) [HumaLOG] 15 units SQ AC-TID 05/06/17 08/16/17 Lisinopril [Prinivil] 10 mg PO DAILY 05/06/17 08/16/17 Pantoprazole [Protonix] 40 mg PO DAILY 05/06/17 08/16/17 Sucralfate [Carafate] 1 gm PO TID 05/06/17 08/16/17 carBAMazepine [TEGretol XR] 400 mg PO Q12HR 05/06/17 08/16/17 levETIRAcetam 1,000 mg PO Q12HR 05/06/17 08/16/17 Atorvastatin [Lipitor] 80 mg PO DAILY 08/16/17 08/16/17 Benzoyl Peroxide [Benzac AC Wash] 1 applic TOPICAL DAILY 08/16/17 08/16/17 Budesonide/Formoterol Fumarate 2 puff INHALATION RT-BID 08/16/17 08/16/17 [Symbicort 160-4.5 Mcg Inhaler] Clindamycin Topical Soln 1 applic TOPICAL DAILY 08/16/17 08/16/17 [Cleocin-T Topical Soln] Ergocalciferol [Vitamin D2] 50,000 unit PO Q7D 08/16/17 08/16/17 Insulin Glargine,Hum.rec.anlog 30 unit SQ DAILY 08/16/17 08/16/17 [Basaglar Kwikpen U-100] Ipratropium-Albuterol Nebulize 3 ml INHALATION RT-QID 08/16/17 08/16/17 [Duoneb 0.5 mg-3 mg/3 ml Soln] Lidocaine 4% Cream [Lmx 4] 1 applic TOPICAL BID 08/16/17 08/16/17 Mupirocin 2% Oint [Bactroban 2% 1 applic TOPICAL BID 08/16/17 08/16/17 Oint] Previous Rx's Medication Instructions Recorded Peg 3350-Na Sulf,Bicarb,Cl/KCl 4,000 ml PO DIRECTED #1 bottle 08/16/17 [Golytely Lavage] Allergies Allergy/AdvReac Type Severity Reaction Status Date / Time pineapple Allergy Anaphylaxis Verified 08/16/17 20:56 tomato Allergy Anaphylaxis Verified 08/16/17 20:56 metoclopramide [From Reglan] AdvReac Confusion Verified 08/16/17 20:56 Review of Systems ROS Statement: Those systems with pertinent positive or pertinent negative responses have been documented in the HPI. ROS Other: All systems not noted in ROS Statement are negative. 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 Basal cell carcinoma History of Any Multi-Drug Resistant Organisms: None Reported Past Surgical History: Appendectomy, Cholecystectomy Additional Past Surgical History / Comment(s): left shoulder Past Anesthesia/Blood Transfusion Reactions: No Reported Reaction Past Psychological History: No Psychological Hx Reported, Depression Smoking Status: Current every day smoker Past Alcohol Use History: None Reported Past Drug Use History: None Reported - Past Family History Father Family Medical History: Cancer, Chest Pain / Angina, Diabetes Mellitus Mother Family Medical History: Chest Pain / Angina, Coronary Artery Disease (CAD), Diabetes Mellitus General Exam - General Exam Comments Initial Comments: General: The patient is awake and alert, in no distress, and does not appear acutely ill. Eye: Pupils are equal, round and reactive to light, extra-ocular movements are intact. Ears, nose, mouth and throat: There are moist mucous membranes. Neck: The neck is supple, there is no tenderness. Cardiovascular: There is a regular rate and rhythm. No murmur, rub or gallop is appreciated. Respiratory: Lungs are clear to auscultation, respirations are non-labored, breath sounds are equal. No wheezes, stridor, rales, or rhonchi. Gastrointestinal: Soft, non-distended, non-tender abdomen without masses or organomegaly noted. There is no rebound or guarding present. No CVA tenderness. Bowel sounds are unremarkable. Back: There is no tenderness to palpation in the midline. There is no obvious deformity. No rashes noted. Musculoskeletal: Normal ROM, no tenderness, There is no pedal edema. There is no calf tenderness or swelling. Sensation intact. Pulses equal bilaterally 2+. Neurological: CN II-XII intact, There are no obvious motor or sensory deficits. Coordination appears grossly intact. Speech is normal. Skin: Skin is warm and dry and no rashes or lesions are noted. Psychiatric: Cooperative, appropriate mood & affect, normal judgment. Limitations: no limitations Course Vital Signs 08/16/17 18:52 Temperature 97.5 F L Pulse Rate 98 Respiratory 20 Rate Blood Pressure 144/88 O2 Sat by Pulse 100 Oximetry Medical Decision Making - Medical Decision Making 41-year-old male presents for constipation. At this time patient was reevaluated he did have some excess with the enema. This time we will give him the cold lately prepped for home to see if they'll claim of rest the way. We discussed follow-up with history of Dr. thorpe parameters all questions. He stated that he understood any significant this plan. All questions have been answered. He will be discharged. - Lab Data Lab Results 08/16/17 Range/Units 20:50 Urine Color Yellow Urine Appearance Clear (Clear) Urine pH 6.5 (5.0-8.0) Ur Specific [place] 1.022 (1.001-1.035) Urine Protein Trace H (Negative) Urine Glucose (UA) 4+ H (Negative) Urine Ketones Negative (Negative) Urine Blood Negative (Negative) Urine Nitrite Negative (Negative) Urine Bilirubin Negative (Negative) Urine Urobilinogen 2.0 (<2.0) mg/dL Ur Leukocyte Esterase Trace H (Negative) Urine RBC <1 (0-5) /hpf Urine WBC 3 (0-5) /hpf Ur Squamous Epith Cells 1 (0-4) /hpf Urine Mucus Rare H (None) /hpf Disposition Clinical Impression: Constipation Disposition: HOME SELF-CARE Condition: Stable Instructions: Constipation (ED) Additional Instructions: Please use medication as discussed. Please follow up with family doctor if symptoms have not improved over the next two days. Please return to the emergency room if your symptoms increase or worsen or for any other concerns. Prescriptions: Peg 3350-Na Sulf,Bicarb,Cl/KCl [Golytely Lavage] 4,000 ml PO DIRECTED #1 bottle Referrals: Ellis Reinoso MD [Primary Care Provider] - 1-2 days Time of Disposition: 22:50
--- NOTE | 2017-08-16 21:04 | XR ---
EXAMINATION TYPE: XR abdomen 2V DATE OF EXAM: 08/16/2017 COMPARISON: NONE HISTORY: Abdominal pain TECHNIQUE: 4 views FINDINGS: There is no sign of intestinal obstruction or pneumoperitoneum. Fecal pattern is normal. Th ere are clips from cholecystectomy. Lung bases are clear. There are no pathologic calcifications over the kidneys. IMPRESSION: Nonacute abdomen.
[2017-08-16 21:05] LABS: Appearance,Urine Clear (Clear); Bilirubin,Urine Negative (Negative); Glucose,Urine (UA) 4+ (Negative); Ketones,Urine Negative (Negative); Leukocyte Esterase,Urine Trace (Negative); Mucus,Urine Rare /hpf; Nitrite,Urine Negative (Negative); PH, Urine 6.5 (5.0-8.0); Particle Count 1255; Protein,Urine Trace (Negative); RBC,Urine <1 /hpf (0-5); Specific Gravity,Urine 1.022 (1.001-1.035); Squamous Epithelial Cell,Urine 1 /hpf (0-4); UA Billing (MACRO vs. MICRO) MICRO; WBC,Urine 3 /hpf (0-5)
[2017-08-16 23:05] VITALS: BP 138/78; PULSE 88; TEMP 98
== END 2017-08-16 23:04 | disposition home or self-care (01) ==
LOC: EC 18:08
DX: K59.00 Constipation, unspecified (principal); N39.43 Post-void dribbling; E11.9 Type 2 diabetes mellitus without complications; I25.10 Atherosclerotic heart disease of native coronary artery without angina pectoris; G40.909 Epilepsy, unspecified, not intractable, without status epilepticus; H54.62 Unqualified visual loss, left eye, normal vision right eye; F17.200 Nicotine dependence, unspecified, uncomplicated; Z79.4 Long term (current) use of insulin; Z79.51 Long term (current) use of inhaled steroids; Z79.899 Other long term (current) drug therapy; Z88.8 Allergy status to other drugs, medicaments and biological substances; Z91.018 Allergy to other foods; Z90.49 Acquired absence of other specified parts of digestive tract
CPT/HCPCS: 74020; 81001; 99284

== ENCOUNTER → 2017-11-09 | Outpatient (CLI) | payer OTHER ==
--- NOTE | 2017-11-09 17:09 | PN ---
PROGRESS NOTE This is a 42-year-old male patient, morbidly obese, with severe SYLVIA with an AHI of 77. The patient is being treated with CPAP with a pressure of 14 cm of water. Today, he is coming in for a compliancy check. Note that he has been diagnosed having a upper lip cancer and he is going to have an extensive resection and reconstruction surgery with possible insertion of a flap. This will be done at [facility]. He is using the CPAP every night. He is utilizing a sit life fullface mask and based on the compliancy data, the patient's average use CPAP is around 9.7 hours per night and his CPAP use for more than 4 hours / and he is not having any significant leaks around the mask. He would like to obtain a heated tubing system. He is benefiting from the treatment. He is much more alert and awake during the day and the hypersomnia although better is still present. He clinically is feeling much improved. His main concern is the lip surgery that he is going to have at [facility]. This may potentially effect his ability to wear the CPAP knowing that this will be an extensive surgery involving the face and upper lip. BP is 151/84, pulse 106, respirations 16, temperature 98.0. Saturation is 94% on room air. Weight is 353. General appearance: Obese, calm, comfortable. Head is atraumatic, normocephalic. Neck short, supple. There is significant crowding of the posterior pharynx. No goiter or neck masses. Lungs diminished breath sounds bilaterally. Scattered rhonchi. Scattered expiratory wheeze. Heart sounds regular rate and rhythm. Normal S1, S2. No S3, S4. No murmurs. Abdomen is soft, nontender. No organomegaly. EXTREMITIES: No edema. No cyanosis or clubbing. NEUROLOGIC: Alert and oriented x3. There is no focal neurological deficits. Psychiatric: The patient has appropriate mood and affect. IMPRESSION: 1. Severe symptomatic obstructive sleep apnea with an AHI of 77. Patient is utilizing fit life fullface mask. 2. Hypersomnia, improved. 3. Morbid obesity with a BMI of 49. 4. 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 5. Pulmonary fibrosis with possible chronic obstructive pulmonary disease. 6. Type 2 diabetes. 7. Hypertension. 8. Coronary artery disease. 9. Chronic back pain. 10.Chronic smoking. PLAN: 1. Review this patient's fit life fullface mask. 2. Continue the CPAP at the same level of pressure which is 14 cm of water. 3. Provide this patient heated tubing. 4. Ask the patient to come into the pulmonary clinic to be evaluated for his chronic dyspnea and be given a preop pulmonary evaluation. 5. Encourage weight loss. 6. We will continue to follow. MOO / MAYCOL: [id number] /
== END | disposition home or self-care (01) ==
LOC: SLEEP 15:35
PROVIDERS: ATTEND Internal Medicine Critical Care Medicine
DX: G47.33 Obstructive sleep apnea (adult) (pediatric) (principal); C00.9 Malignant neoplasm of lip, unspecified; E66.01 Morbid (severe) obesity due to excess calories; J84.10 Pulmonary fibrosis, unspecified; E11.9 Type 2 diabetes mellitus without complications; I10 Essential (primary) hypertension; I25.10 Atherosclerotic heart disease of native coronary artery without angina pectoris; G89.29 Other chronic pain; F17.200 Nicotine dependence, unspecified, uncomplicated; Z68.42 Body mass index [BMI] 45.0-49.9, adult; Z99.89 Dependence on other enabling machines and devices